=== PATIENT | female | born 1935 | race Caucasian/White ===

== ENCOUNTER → 2016-10-21 | Outpatient (CLI) | payer MEDICARE ==
[~2016-10-21] MED LIST: ADALATCC PO; ALEVE; ALEVE220 M1 PO; ALLOPURINOL300 MG PO; ALTACE2.5 MG PO; AMIODARONE HCL200 MG; CLONIDINE PO; DIAZEPAM PO; ELIQUIS5 MG PO; FEMARA2.5 MG PO; HCTZ PO; IBUPROFEN PO; INDERAL40 MG; INNOPRAN XL120 MG PO; LANOXIN PO; LASIX PO; LIPITOR40 MG PO; LISINOPRIL-HCTZ1 T19 PO; LORTAB 7.5-5001 TAB PO; MIRALAX17 GM PO; NIACOR; PROCARDIA XL PO; PROPRANOLOL PO; SIMVASTATIN40 MG PO; TOPROL XL PO; ZOCOR PO; ZYLOPRIM PO
[2016-10-21 10:53] LABS: ALBUMIN SERUM 3.9 g/dL (3.5-5.0); ALKALINE PHOSPHATASE 107 U/L (32-92); ALT (SGPT) 19 U/L (10-40); AST (SGOT) 26 U/L (10-42); BILIRUBIN,TOTAL 0.9 mg/dL (0.2-2.0); BLOOD UREA NITROGEN 21 mg/dL (9-23); BUN/CREATININE RATIO 19.09; CARBON DIOXIDE 23 mmol/L (22-31); CHLORIDE 104 mmol/L (100-111); CHOLESTEROL 187 mg/dL (0-200); CK TOTAL 141 IU/L (26-140); CREATININE SERUM 1.1 mg/dL (0.6-1.4); GLOM FILT RATE Estimated 50.9 mL/min (>60); GLUCOSE FASTING 171 mg/dL (70-110); HDL CHOLESTEROL 30 mg/dL (35-95); MAGNESIUM 1.7 mg/dL (1.6-3.0); POTASSIUM 3.6 mmol/L (3.5-5.1); PROTEIN TOTAL SERUM 7.2 g/dL (6.0-8.3); SODIUM 135 mmol/L (135-145)
[2016-10-21 10:54] LABS: TRIGLYCERIDES 527 mg/dL (10-160)
[2016-10-21 15:50] LABS: MB 3.7 ng/ml
[2016-10-21 15:51] LABS: %MB 2.6 % (0.0-4.0)
== END | disposition home or self-care (01) ==
LOC: SLAB 11:45
DX: E78.5 Hyperlipidemia, unspecified (principal)
CPT/HCPCS: 36415; 80053; 80061; 82550; 82553; 83735

== ENCOUNTER 2016-12-08 18:04 | Inpatient (IN) | payer MEDICARE, BC ==
--- NOTE | ~2016-12-08 | EKG ---
PATIENT: THOMAS DE LA CRUZ UNIT #: [id number] Ventricular Rate: 50 BPM Atrial Rate: 83 BPM QRS Duration: 88 ms Q-T Interval: 374 ms QTC Calculation(Bezet): 340 ms Calculated R [place]: 43 degrees Calculated T [place]: -116 degrees Diagnosis Line: Atrial fibrillation with slow ventricular response Diagnosis Line: ST and T wave abnormality, consider inferior Diagnosis Line: ischemia Diagnosis Line: Abnormal ECG Diagnosis Line: No previous ECGs available Diagnosis Line: Confirmed by MOIRA ARNOLD MD ([id number]) on 12/12/2016 Diagnosis Line: 3:51:10 PM INTERPRETING MD: CATALINA UREÑA
--- NOTE | ~2016-12-08 | EKG ---
PATIENT: THOMAS DE LA CRUZ UNIT #: [id number] Ventricular Rate: 56 BPM Atrial Rate: 52 BPM QRS Duration: 164 ms Q-T Interval: 448 ms QTC Calculation(Bezet): 432 ms Calculated R [place]: 84 degrees Calculated T [place]: -94 degrees Diagnosis Line: Sinus bradycardia with A-V dissociation and Wide Diagnosis Line: QRS rhythm with Fusion complexes Junctional rhythm Diagnosis Line: Left bundle branch block with repolarization Diagnosis Line: abnormality Diagnosis Line: Abnormal ECG Diagnosis Line: When compared with ECG of 08-DEC-2016 18:18, Diagnosis Line: (unconfirmed) Diagnosis Line: Wide QRS rhythm has replaced Atrial fibrillation Diagnosis Line: Confirmed by MOIRA ARNOLD MD ([id number]) on 12/12/2016 Diagnosis Line: 3:55:47 PM INTERPRETING MD: CATALINA UREÑA
--- NOTE | ~2016-12-08 | A ---
[facility] Nutrition Therapy DATE: 12/13/16 Patient: THOMAS DE LA CRUZ Physician: FILOMENA Address: [address] [place] [address] Room/Bed: [address], Zip: [place] [address] Admit Date: 12/08/16 Date of : 37 Height: 5 2 Weight: 202 92 NUTRITIONAL ASSESSMENT: REASON: ICU length of stay Admitting Dx: 81 y/o female had cardioversion, went home and had dizzy spell/fall and was admitted PMH: CHF, HTN, CKD, Afib, borderling dyslipidemia, ventral hernia repair, appy, layne Anthropometrics: Ht: 62", admission wt: 91 kg, current wt: 92 kg, BMI: 36 (Stage II obese) Labs: Glucose 114, BUN 33, GFR 47.4 Meds: Lipitor, Lasix, Dopamine I/O & Bowel function: LBM 12/12, WNL Skin Integrity: R IJ site, generalized-1+ edema noted Assessment: Chart reviewed, events noted. See admitting dx and PMH as stated above, hospital course reviewed. Patient received temporary pacemaker on 12/10 after she coded, to get permanent pacemaker at [facility] 12/14 or 12/15. She is on 2L nasal cannula and has been eating well throughout her hospital course. She has had no recent weight loss, is Stage II obese, on healthy heart diet. Not appropriate for diet education at this time. See recs below, will follow. Dx: Stage II obese r/t diet/lifestyle/activity level AEB BMI 36. Intervention: Continue current diet Monitoring, Evaluation and Goals: 1. Gradual weight loss towards a healthy BMI range. 2. Labs WNL. Monitor: Per protocol, criteria to determine if above goals met Recommendations: 1. Continue current diet to promote a gradual weight loss towards a healthy BMI range. 2. If patient becomes appropriate for diet education prior to discharge please consult RD. [facility] Nutrition Therapy DATE: 12/13/16 Patient: THOMAS DE LA CRUZ Physician: FILOMENA Address: [address] [place] [address] Room/Bed: [address], Zip: [place] [address] Admit Date: 12/08/16 Date of : 36 Height: 5 2 Weight: 202 92 Will follow hospital course Mild-moderate nutrition risk Respectfully, Linh Monk RD, LD Food [facility] Nutrition[facility] cc: client file
--- NOTE | ~2016-12-08 | HP ---
Unit #: [id number] #: [id number] Patient: THOMAS DE LA CRUZ [id number] [facility] [address] [facility]. [place], [place] [address] [id number] I MR#: [id number] NAME: THOMAS DE LA CRUZ. ROOM: [facility] Age: 81 Sex: F Admission Date: 12/08/2016 : 1935 Attending Physician: Shelbi Zhang M.D. Primary Care Physician: Rachid Dangelo M.D. HISTORY AND PHYSICAL CHIEF COMPLAINT Falling. HISTORY OF PRESENT ILLNESS Ms. De La Cruz is a pleasant 81-year-old seen in ICU-20 at [facility]. I cardioverted her yesterday from atrial fibrillation to sinus rhythm. She has a history of congestive heart failure, and we have treated her with appropriate medications, started her on a CPAP, and started her on amiodarone. She had been taking Inderal for tremors, prescribed q.i.d. but she was only taking it b.i.d. Metoprolol had been added for heart rate control with the atrial fibrillation and with the CHF. After cardioversion the heart rate was initially 25, for less than one minute and after atropine increased to 50. She had been discharged home with a heart rate of 60 and blood pressure 120 feeling well; however, she took her Lasix at home, after which she started to feel dizzy. She then presented to the emergency room, and ECG showed sinus beats with primarily junctional rhythm with rates of 5-59. She was started on dopamine and heart rates have been maintained between 60 and 70 during the night with blood pressures up to 170 during the night. PAST MEDICAL HISTORY 1. Chronic systolic congestive heart failure, with ejection fraction 25-30% yesterday with the transesophageal echo. 2. Paroxysmal atrial fibrillation. 3. Hypertension. 4. Borderline dyslipidemia. 5. No history of diabetes. 6. Nephrolithiasis. 7. Chronic kidney disease. 8. Appendectomy. 9. Cholecystectomy. 10. Thyroidectomy. 11. Tumors on foot and left arm. 12. Lumpectomy for breast cancer. 13. Ventral hernia repair. 14. Right foot surgery x3. SOCIAL HISTORY No meaningful tobacco abuse. She smoked a few cigarettes for a few years but stopped this years ago. 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 FAMILY HISTORY Mother and sister had heart disease. Sister may have had a myocardial infarction. Unit #: [id number] #: [id number] Patient: THOMAS DE LA CRUZ ALLERGIES None. HOME MEDICATIONS 1. Allopurinol. 2. Propranolol. 3. Eliquis. 4. Digoxin (discontinued). 5. Metoprolol. 6. Inderal. 7. Amiodarone. 8. Niacin. 9. Aleve. 10. Entresto. REVIEW OF SYSTEMS As per history of present illness. Otherwise, as stated below. GENERAL: No recent fever or chills. No recent weight change. ENDOCRINE: Negative for thyroid disease. HEENT: No auditory or visual disturbances. GASTROINTESTINAL: No melena, no hematochezia. RESPIRATORY: No wheezing or significant dyspnea. CARDIOVASCULAR: Vide supra. GENITOURINARY: No dysuria. No back pain suggestive of nephrolithiasis. NEUROLOGIC: She manifested some dizziness today when I stopped the dopamine and she sat up. PSYCHOLOGICAL: No depression. PHYSICAL EXAMINATION GENERAL: Pleasant, alert, no acute distress. VITAL SIGNS: Blood pressure and heart rate are as noted above. Height 5 feet 2 inches, weight 210 pounds, BMI 36. SKIN: Warm and dry. No xanthelasma. MUSCULOSKELETAL: No missing digits. Moves easily for evaluation. NEUROLOGICAL: Appropriate mood and affect. Alert and oriented x3. HEENT: Pupils equal, round and reactive. No oral cyanosis. No icterus. NECK: Carotids clear to auscultation with no carotid bruits. Normal carotid upstroke bilaterally. Thyroid is normal in size and texture without masses or tenderness. CHEST: Clear to auscultation with no rales or wheezes. Good effort. CARDIAC: Normal point of maximum impulse. Normal S1 and S2. No S3, S4 or rub. ABDOMEN: No hepatosplenomegaly, masses or tenderness. Normal bowel sounds. No abdominal bruits heard. EXTREMITIES: No clubbing, cyanosis or edema. Excellent posterior tibial and dorsalis pedis pulses. DIAGNOSTIC STUDIES CARDIOVASCULAR: ECG shows sinus rhythm, sinus beats with some junctional rhythm. Bundle branch block when junctional rhythm is present. Fasting glucose 141, creatinine 1.4, potassium 4.5, magnesium 1.8. TSH in 2015 was 2.06. White blood count 10.8, hemoglobin 11.0. IMPRESSION 1. Junctional rhythm and bradycardia associated with weakness and fall at home, after diuretics, and cardioversion, thus symptomatic bradycardia. Unit #: [id number] #: [id number] Patient: THOMAS DE LA CRUZ 2. Chronic systolic congestive heart failure, ejection fraction 25-30%. 3. Obstructive sleep apnea. She uses a CPAP only 4 hours per night. We will Dr. Rosa see her. 4. Tremors. She was taking Inderal for the tremors. She cannot take the beta blockers any longer. Will have neuro see her. 5. Paroxysmal atrial fibrillation, currently in sinus rhythm. 6. History of hypertension. Borderline dyslipidemia. No diabetes. Borderline family history of coronary disease. No tobacco abuse history. PLANS 1. Watch her in the ICU currently. Long discussion with Dr. Dorman, patient's granddaughter, and the nurse to try to make sure we are all on the same page. The dopamine will emphasize the junctional response and slow down the sinus recovery. Dr. Dorman therefore recommended no dopamine. No pacemaker currently, we need to let the beta blockers wear off. 2. There is a question of an ICD in the future. 3. Dr. Rosa to see regarding getting the patient to use her CPAP for longer time periods at night. 4. Neuro to see. 5. Check TSH to make sure this is not a factor in her current symptomatology. 80 minutes. Dictated by Luis Oconnell M.D. BARBARA/aram TD: 12/09/2016 10:16 JOB #: [id number] HISTORY AND PHYSICAL Page 1 of 1 X Luis Oconnell MD X HISTORY AND PHYSICAL
--- NOTE | ~2016-12-08 | CO ---
Unit #: [id number] #: [id number] Patient: THOMAS DE LA CRUZ [id number] [place], [place] [address] [id number] I MR#: [id number] NAME: THOMAS DE LA CRUZ. ROOM: [facility] Age: 81 Sex: F Admission Date: 12/08/2016 : 1935 Attending Physician: Shelbi Zhang M.D. Primary Care Physician: Rachid Dangelo M.D. CONSULTATION REPORT HISTORY OF PRESENT ILLNESS Ms. De La Cruz is an 81-year-old white female, who was admitted to the hospital with bradycardia. She was cardioverted yesterday for atrial fibrillation to sinus rhythm. Apparently, she was initially bradycardic after the event, but heart rate increased after atropine and she was discharged home. She took some metoprolol at home and placed on Lasix and her heart rate fell and she became dizzy. She was readmitted. We were asked to see for sleep apnea. She told Dr. Oconnell she was not always wearing a CPAP. She sees Dr. Rosa in our office. 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 She says some night, she wears it 7.5 to 8 hours of the night, may be 4 hours. She says she sometimes feel like she is smothering with it or she gets hot with her mask on. We do not have her compliance card to review. She was last seen in our office in the fall of 2015. PAST MEDICAL HISTORY Significant for chronic systolic congestive heart failure, ejection fraction 25% to 30%, paroxysmal atrial fibrillation, hypertension, hyperlipidemia, diabetes, nephrolithiasis, chronic kidney disease. PAST SURGICAL HISTORY Appendectomy, cholecystectomy, thyroidectomy, tumors removed from foot and arm, lumpectomy for breast cancer, ventral hernia repair, right foot surgery. ALLERGIES None. HOME MEDICATIONS Allopurinol, propranolol, Eliquis, digoxin, metoprolol, Inderal, amiodarone, niacin, Aleve, Entresto. FAMILY HISTORY Sister has heart disease. SOCIAL HISTORY No significant tobacco use. He used to work in a bank, lives alone. REVIEW OF SYSTEMS CONSTITUTIONAL: No fevers or chills. HEENT: No rhinorrhea or nasal congestion. ENDOCRINE: No thyroid disease. Does have diabetes. HEENT: No visual disturbances. GI: No nausea or vomiting. Unit #: [id number] #: [id number] Patient: THOMAS DE LA CRUZ : No hematuria or dysuria. ENDOCRINE: No polyuria or polydipsia. HEMATOLOGIC: Does have easy bruising and bleeding. SKIN: No rash. PSYCH: No depression. Does have some dizziness. PHYSICAL EXAMINATION GENERAL: White female, obese, no distress. VITAL SIGNS: Blood pressure is 117/56, pulse 58, respiratory rate 17, afebrile. HEENT: Normocephalic, atraumatic. Pupils are equal, round, and reactive. Sclerae nonicteric. Nasal passages patent. Posterior pharynx crowded. Dentures in place. Mallampati IV. NECK: Supple. Trachea midline. No cervical or supraclavicular lymphadenopathy. LUNGS: Clear to auscultation and percussion. CARDIAC: Regular rate and rhythm. Could not appreciate murmur, rub, or gallop. ABDOMEN: Nontender. Bowel sounds present. No hepatosplenomegaly. EXTREMITIES: Without clubbing, cyanosis, or edema. SKIN: Warm and dry. PSYCHIATRIC: Affect calm. IMPRESSION 1. Obstructive sleep apnea. 2. Bradycardia secondary to medication. 3. Paroxysmal atrial fibrillation. 4. Chronic systolic heart failure. 5. Morbid obesity. 6. Diabetes mellitus. 7. Hypertension. PLAN We will have the patient follow up in the office to review compliance chip. May consider mask change to afford better comfort at night. Dr. Rosa will follow up in the a.m. Dictated by... Earnest Pressley M.D. LETICIA/penelope TD: 12/10/2016 02:09 JOB #: [id number] CONSULTATION REPORT Page 1 of 1 X Earnest Pressley MD CONSULTATION REPORT
--- NOTE | ~2016-12-08 | EKG ---
PATIENT: THOMAS DE LA CRUZ UNIT #: [id number] Ventricular Rate: 62 BPM Atrial Rate: 62 BPM P-R Interval: 472 ms QRS Duration: 170 ms Q-T Interval: 498 ms QTC Calculation(Bezet): 505 ms Calculated R [place]: -128 degrees Calculated T [place]: 16 degrees Diagnosis Line: Electronic ventricular pacemaker Diagnosis Line: When compared with ECG of 10-DEC-2016 10:56, Diagnosis Line: (unconfirmed) Diagnosis Line: Electronic ventricular pacemaker has replaced Diagnosis Line: Junctional rhythm Diagnosis Line: Confirmed by ETHAN EVANS MD ([id number]) on 12/12/2016 Diagnosis Line: 9:16:25 PM INTERPRETING MD: CRISTINA UREÑA
--- NOTE | ~2016-12-08 | DS ---
Unit #: [id number] #: [id number] Patient: THOMAS DE LA CRUZ [id number] [address] [id number] I MR#: [id number] NAME: THOMAS DE LA CRUZ. ROOM: [facility] Age: 81 Sex: F Admission Date: 12/08/2016 : 1935 Discharge Date: Attending Physician: Shelbi Zhang M.D. Primary Care Physician: Rachid Dangelo M.D. DISCHARGE SUMMARY ADDENDUM The patient apparently received her last dose of Eliquis on December 12, 2016. Eliquis has been discontinued. The patient's AICD placement was changed from Tuesday to Tuesday, December 15, 2016. The patient is stable for discharge. The patient will be continued on: 1. Spironolactone 12.5 mg p.o. daily. 2. Mysoline 50 mg p.o. at night. 3. Dopamine drip. 4. Lipitor 40 mg at bedtime. 5. Altace 2.5 mg p.o. at night. 6. Lisinopril 40 mg p.o. daily. 7. Zyloprim 300 mg p.o. daily. Dictated by... Elva Shafer A.P.R.N. for Luis Oconnell M.D. AM/jeb TD: 12/14/2016 09:26 JOB #: [id number] DISCHARGE SUMMARY Page 1 of 1 X lEva Shafer APRN X DISCHARGE SUMMARY
--- NOTE | ~2016-12-08 | CR72 ---
[facility] A Service of [facility] & [facility] RADIOLOGY TEXT RESULTS PATIENT: THOMAS DE LA CRUZ LOCATION: [address] : [birth year] UNIT #: [id number] AGE: [address]: Shelbi Zhang MD SEX: F ORDER DR: [id number] [facility] [address] [place], [place] [address] [id number] I MR#: [id number] Acc #: [id number] NAME: THOMAS DE LA CRUZ. : 1935 SEX: F STUDY DATE/TIME: 12/08/2016 18:58 UNIT: CEDOF ROOM: [id number] STUDY DESCRIPTION: CR Chest Single View Portable Attending Physician: Shelbi Zhang M.D. Ordering Physician: Henry Michael D.O. Primary Care Physician: Rachid Dangelo M.D. MEDICAL IMAGING REPORT This report is preliminary unless electronic signature is present EXAM Portable chest. DATE OF EXAM 12/08/2016 INDICATIONS Weakness with shortness of air with activity today. Fall today. History of breast cancer. FINDINGS AP portable chest compared with 06/18/2015. Again seen is severe degenerative disease in both shoulders. The heart remains enlarged. There may be a hiatal hernia. The lungs are clear except for granulomatous calcification. No pneumothorax. IMPRESSION Stable cardiomegaly. No active disease. Hiatal hernia may be present. Dictated by... Jay Jay Klein Jr., M.D. THIS IS AN ELECTRONICALLY VERIFIED REPORT Jay Jay Klein Jr., M.D. at 12/08/2016 11:05 PM DANIELA/rachid TD: 12/08/2016 20:37 JOB #: [id number] MEDICAL IMAGING REPORT Page 1 of 1 COPY
--- NOTE | ~2016-12-08 | OR ---
Unit #: [id number] #: [id number] Patient: THOMAS DE LA CRUZ [id number] [facility]. [place], [place] [address] [id number] I MR#: [id number] NAME: THOMAS DE LA CRUZ ROOM: [id number] Date of Procedure: 12/08/2016 Admission Date: 12/08/2016 Surgeon: Luis Oconnell M.D. : 1935 Attending Physician: Shelbi Zhang M.D. Primary Care Physician: Rachid Dangelo M.D. PROCEDURE OPERATIVE NOTE PROCEDURE PERFORMED Cardioversion. INDICATION Atrial fibrillation, CHF. SUMMARY After the procedure was explained, questions answered, the consent signed a transesophageal echocardiogram was done. Versed 4 mg and fentanyl 75 mcg were given at the time. The SEAN showed no cardiac masses. Ejection fraction was approximately 25% to 30%, 1 to 2+ MR and TR and 1+ AI. After the SEAN, the patient was brought to the recovery room and appropriate anesthesia was given for DC synchronized biphasic electrical cardioversion. Patient was cardioverted at 75 J without success, then successfully at 100 J. The patient's returning rhythm was junctional rhythm, rate 25 at first, then atropine was given in successive doses up to 2 mg, with a resulting rate of 50 beats per minute. The blood pressure immediately after the procedure was approximately 95, with blood pressure of 84 after the final milligram of atropine was given. Patient was easily aroused, able to understand commands, lifting her head, and each arm and each leg appropriately to command. At the time of this dictation patient will be observed for another hour and a half in the recovery room, and allowed to wake up, after the sedation given previously. At the time of this dictation patient is in junctional rhythm, with junctional premature beats. Rate is still approximately 50. Blood pressure now 84/38, oxygen saturation during the entire procedure, including the very slow junctional rates, was 99%. Patient never developed any cyanosis, or any signs of distress. If the patient's heart rate does not become sinus, patient may be watched overnight in the ICU. Very cautious fluid has been given because of the heart failure, at the time of this dictation currently 700 mL. Dictated by... Unit #: [id number] #: [id number] Patient: THOMAS DE LA CRUZ M.D. PJR/christopher TD: 12/08/2016 21:45 JOB #: [id number] PROCEDURE OPERATIVE NOTE Page 1 of 1 X Luis Oconnell MD PROCEDURE OPERATIVE NOTE
--- NOTE | ~2016-12-08 | EKG ---
PATIENT: THOMAS DE LA CRUZ UNIT #: [id number] Ventricular Rate: 45 BPM Atrial Rate: 0 BPM QRS Duration: 92 ms Q-T Interval: 402 ms QTC Calculation(Bezet): 347 ms Calculated R [place]: 31 degrees Calculated T [place]: 61 degrees Diagnosis Line: Junctional rhythm Diagnosis Line: Nonspecific ST and T wave abnormality Diagnosis Line: Abnormal ECG Diagnosis Line: No previous ECGs available Diagnosis Line: Confirmed by MOIRA ARNOLD MD ([id number]) on 12/12/2016 Diagnosis Line: 4:03:21 PM INTERPRETING MD: CATALINA UREÑA
--- NOTE | ~2016-12-08 | CO ---
Unit #: [id number] #: [id number] Patient: THOMAS DE LA CRUZ [id number] [facility] [address] [place], [place] [address] [id number] I MR#: [id number] NAME: THOMAS DE LA CRUZ. ROOM: [facility] Age: 81 Sex: F Admission Date: 12/08/2016 : 1935 Attending Physician: Shelbi Zhang M.D. Primary Care Physician: Rachid Dangelo M.D. Consultation Date: 12/09/2016 CONSULTATION REPORT REFERRING PHYSICIAN Peterson Oconnell M.D. REASON FOR CONSULTATION Tremors. PATIENT IDENTIFICATION 81-year-old right-handed white female who was evaluated from ICU 20 at [facility]. SOURCE OF INFORMATION The patient, and evaluation by the admitting team and the patient's family. PROBLEM LIST 1. The patient had a history of tremors, was on beta-blockers for quite some time and it has to be stopped and has seen a neurologist in the past but with no significant help. 2. Chronic systolic congestive heart failure with low ejection fraction. 3. Paroxysmal atrial fibrillation. 4. Hypertension. 5. Borderline dyslipidemia. 6. No history of diabetes. 7. Nephrolithiasis. 8. Chronic kidney disease. 9. Appendectomy. 10. Cholecystectomy. 11. Thyroidectomy. 12. Tumor on the foot and left arm. 13. Lumpectomy for breast cancer. 14. Ventral hernia repair. 15. Right foot surgery x3. HISTORY OF PRESENT ILLNESS This is a very pleasant 81-year-old, right-handed, white female who was actually admitted for other reasons but the family wanted an opinion on tremors. 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 Her son has them and her older siblings had them. She gets better when she used to drink and she will be fine until the morning, but does not drink anymore and she was on Inderal but not really helping. Now the Inderal has to be stopped, so they wanted another opinion. She was awake and alert and oriented. Unit #: [id number] #: [id number] Patient: THOMAS DE LA CRUZ No falls or injuries. Nothing else focal. No seizures. No migraines. No stroke-like symptoms. PAST MEDICAL HISTORY As discussed above. PAST SURGICAL HISTORY As discussed above. FAMILY HISTORY Coronary artery disease and benign essential tremor. ALLERGIES None. HOME MEDICATIONS 1. Allopurinol. 2. Propranolol. 3. Eliquis. 4. Digoxin. 5. Metoprolol. 6. Inderal. 7. Amiodarone. 8. Niacin. 9. Aleve. 10. Entresto. SOCIAL HISTORY No significant tobacco use. She smoked a few cigarettes for a few years but stopped years ago. She used to work in a bank. Currently lives alone. No tobacco, alcohol, or drug use anymore. REVIEW OF SYSTEMS Mostly the tremors and cardiac issues. No weight issues, fever, chills, rigors, or sweats. HEENT: No headaches. No double vision, earache, runny nose or sore throat. CARDIOVASCULAR: No chest pain, clubbing, cyanosis, orthopnea, or palpitations. PULMONARY: No shortness of air, cough, or expectoration. ABDOMEN: No nausea, vomiting, diarrhea, or constipation. : No genitourinary symptoms. EXTREMITIES: Problems as discussed. BACK: No back problems. PSYCHIATRIC: No psychiatric issues. NEUROLOGICAL: Neurological issues as discussed. HEMATOLOGIC/DERMATOLOGIC/ENDOCRINE: No problems known to me. PHYSICAL EXAMINATION VITAL SIGNS: Temperature 98.1, pulse 44, respiratory 17, blood pressure 113/43, O2 sats are 93% to 98%. Weight 210 pounds. BMI was 36. Unit #: [id number] #: [id number] Patient: THOMAS DE LA CRUZ NEUROLOGICAL EXAMINATION: The patient is awake. She is alert. She is essentially oriented. She can name. She can follow commands. No right/left confusion. No finger agnosia. CRANIAL NERVE EXAMINATION: Demonstrates full mcdonald of vision to confrontation. Eye movements are conjugate. I did not see any ptosis. I did not see any nystagmus. Extraocular movements are intact. Sensation on the face and scalp are normal. Central muscles of facial expression are normal. Hearing seemed to be intact bilaterally. Tongue was midline. Uvula was midline. Palate elevation was normal. No voice quiver. MOTOR EXAMINATION: She has very fine tremor. Moderate amplitude, about 5-7 hertz. Strength was 5-/5. SENSORY EXAMINATION: Intact for soft touch and pain sensation. No extinction was seen. Romberg was not evaluated. GAIT EXAMINATION: Deferred. COORDINATION: Tremors but no real pass pointing. REFLEXES: Toes are equivocal. DIAGNOSTIC STUDIES LABORATORY STUDIES: BUN was 33, creatinine 1.5, range of glucose was 141 to 190. TSH was 4.2. White count is 10.38, mild anemia. IMAGING STUDIES: No brain imaging studies available to me. IMPRESSION 1. Benign essential familial tremor. She cannot take Inderal or beta-blockers anymore, so I think the best appropriate would be to go to primidone and I'm going to start with 25 mg and go higher if needed and tolerated. I explained to the daughter. She definitely needs followup because all of these medications need to be titrates up or tapered down, in case it is needed or there are side effects and that is why it is not an optimum idea to see patient, especially in the ICU setting, but I understand with the beta-blockers the situation. These do not look like seizures. 2. In some cases of small doses of benzodiazepines may be used to help with the amplitude of the tremors and will see how things go, contrary to pressing issue of concern. Dictated by... Kennedi Mcneil/jamie TD: 12/10/2016 11:31 JOB #: [id number] Unit #: [id number] #: [id number] Patient: THOMAS DE LA CRUZ CONSULTATION REPORT Page 1 of 1 X Jesus Jackman MD CONSULTATION REPORT
--- NOTE | ~2016-12-08 | OR ---
Unit #: [id number] #: [id number] Patient: THOMAS DE LA CRUZ [id number] [address] [address] [id number] I MR#: [id number] NAME: THOMAS DE LA CRUZ. ROOM: [facility] Date of Procedure: 12/10/2016 Admission Date: 12/08/2016 Surgeon: Aries Dumont M.D. : 1935 Attending Physician: Shelbi Zhang M.D. Primary Care Physician: Rachid Dangelo M.D. OPERATIVE REPORT PROCEDURE PERFORMED Temporary pacemaker insertion. INDICATION FOR PROCEDURE Severe bradycardia. DESCRIPTION OF PROCEDURE The patient was brought to the cardiac catheterization lab, right cervical neck was prepared and draped in a sterile manner. 10 mL of subcutaneous Xylocaine was infiltrated. Using a Cook needle, right internal jugular vein was punctured and a J-tip guidewire was advanced. A 6-Slovenian Hemaquet sheath was placed in the internal jugular vein under fluoroscopic control. A 5-Slovenian straight tipped unipolar pacing catheter was then advanced under fluoroscopic control into the right ventricular apex. Excellent pacing thresholds were obtained, pacemaker and the sheaths were sutured in place. No complications were encountered. IMPRESSION Successful placement of a temporary transvenous pacemaker via the right internal jugular vein with following parameters; heart rate 60, mode full demand, output 5 milliamps. The patient was transferred to the ICU in satisfactory condition and normal vital signs. Dictated by... Kennedi Villanueva/penelope TD: 12/11/2016 05:17 JOB #: [id number] Unit #: [id number] #: [id number] Patient: THOMAS DE LA CRUZ OPERATIVE REPORT Page 1 of 1 X Aries Dumont MD X PROCEDURE OPERATIVE NOTE
--- NOTE | ~2016-12-08 | DS ---
Unit #: [id number] #: [id number] Patient: THOMAS DE LA CRUZ [id number] [facility]. [place], [place] [address] [id number] I MR#: [id number] NAME: THOMAS DE LA CRUZ. ROOM: [facility] Age: 81 Sex: F Admission Date: 12/08/2016 : 1935 Discharge Date: Attending Physician: Shelbi Zhang M.D. Primary Care Physician: Rachid Dangelo M.D. DISCHARGE SUMMARY DATE OF ANTICIPATED DISCHARGE December 13, 2016 ADMITTING DIAGNOSIS Dizziness. DISCHARGE DIAGNOSES 1. Dizziness related to complete heart block. 2. Atrial fibrillation, converted, with complete heart block despite beta fernando wearing off. 3. Congestive heart failure with ejection fraction of 25% to 30%. 4. Mild to moderate mitral and tricuspid regurgitation. 5. Obstructive sleep apnea. HOSPITAL COURSE The patient was admitted the evening after she was cardioverted. After her cardioversion, she developed significant bradycardia which had recovered by the time she was discharged with blood pressures 110 to 120 and heart rate 60. However, when she arrived home, she took a Lasix, became dizzy after the Lasix started to take affect, and was brought back to the emergency room. In the emergency room, she was found to have heart rates in the 40s with complete heart block present. Heart rates would go down into the 30s when she would sleep. We tried to wean off dopamine, which I started to sustain heart rate, with several discussions with Dr. Dorman. When we weaned off the dopamine, she became asystolic, and a temporary pacemaker was placed. At the time of this dictation, the patient is deciding between AICD and permanent pacemaker. DISCHARGE MEDICATIONS 1. Amiodarone 200 mg daily. 2. Eliquis 5 mg b.i.d. 3. Mysoline 50 mg, 25 mg at bedtime, thus 1/2 tab. 4. Digoxin discontinued. 5. Metoprolol discontinued. 6. Inderal discontinued (for tremors). 7. Lasix 40 mg daily. 8. Atorvastatin 40 mg daily. 9. Altace 2.5 mg at bedtime. 10. Allopurinol 300 mg daily. 11. Niacin. DISPOSITION Unit #: [id number] #: [id number] Patient: THOMAS DE LA CURZ Transfer to [facility] for permanent pacemaker or ICD placement. Patient is still deciding about the options. Dictated by... Kennedi Lozada/kole TD: 12/12/2016 21:02 JOB #: [id number] DISCHARGE SUMMARY Page 1 of 1 X Lius Oconnell MD X DISCHARGE SUMMARY
[2016-12-08 19:40] LABS: INR 1.2; PARTIAL THROMBOPLASTIN TIME 28.7 SECONDS (23.5-31.3); PROTHROMBIN TIME (PATIENT) 12.4 SECONDS (9.6-11.5)
[2016-12-08 19:44] LABS: BASOPHIL# 0.1 X10e3 (0-0.3); BASOPHIL% 0.6 % (0-2.5); EOSINOPHIL# 0.2 X10e3 (0-0.7); EOSINOPHIL% 2.1 % (0.0-7.0); HEMATOCRIT 33.4 % (35.0-45.0); LYMPHOCYTE# 1.2 X10e3 (1.0-3.5); LYMPHOCYTE% 11.4 % (17.0-45.0); MEAN CELL VOLUME 99.6 FL (83-96); MEAN CORPUSCULAR HEMOGLOBIN 32.7 PG (28-34); MEAN CORPUSCULAR HGB CONC 32.8 g/dL (30-36); MEAN PLATELET VOLUME 7.5 FL (6.5-11.5); MONOCYTE# 0.8 X10e3 (0-1.0); MONOCYTE% 7.7 % (3.0-12.0); NEUTROPHIL# 8.5 X10e3 (1.5-7.1); NEUTROPHIL% 78.2 % (40-75); PLATELET COUNT 164 X10e3 (140-420); RED BLOOD COUNT 3.35 X10e (3.90-5.30); RED CELL DISTRIBUTION WIDTH 16.1 % (11.0-15.5); WHITE BLOOD COUNT 10.8 X10e3 (4.0-10.5)
[2016-12-08 19:46] LABS: DIFF IND NO
[2016-12-08 19:48] LABS: BILIRUBIN, DIRECT 0.1 mg/dL (0.0-0.2); BILIRUBIN,INDIRECT 1.2 mg/dL (0.0-0.9); BILIRUBIN,TOTAL 1.3 mg/dL (0.2-2.0); BUN/CREATININE RATIO 22.85; CALCIUM SERUM 9.4 mg/dL (8.4-10.2); CREATININE SERUM 1.4 mg/dL (0.6-1.4); GLOM FILT RATE Estimated 35.4 mL/min (>60); MAGNESIUM 1.8 mg/dL (1.6-3.0); POTASSIUM 4.5 mmol/L (3.5-5.1); PROTEIN TOTAL SERUM 7.4 g/dL (6.0-8.3)
[2016-12-08 21:03] LABS: POC - CKMB 2.6 ng/mL (0.0-7.9); POC - TROPONIN <0.05 ng/mL (<=0.05)
[2016-12-09 11:14] LABS: CALCIUM SERUM 9.3 mg/dL (8.4-10.2); CREATININE SERUM 1.5 mg/dL (0.6-1.4); GLOM FILT RATE Estimated 32.6 mL/min (>60); MAGNESIUM 1.9 mg/dL (1.6-3.0); POTASSIUM 4.8 mmol/L (3.5-5.1)
[2016-12-10 06:54] LABS: BUN/CREATININE RATIO 26.15; CALCIUM SERUM 9.2 mg/dL (8.4-10.2); CREATININE SERUM 1.3 mg/dL (0.6-1.4); GLOM FILT RATE Estimated 38.7 mL/min (>60); POTASSIUM 4.1 mmol/L (3.5-5.1)
[2016-12-11 06:57] LABS: CALCIUM SERUM 8.8 mg/dL (8.4-10.2); CREATININE SERUM 1.3 mg/dL (0.6-1.4); GLOM FILT RATE Estimated 38.7 mL/min (>60)
[2016-12-12 05:38] LABS: BUN/CREATININE RATIO 33.33; CALCIUM SERUM 8.8 mg/dL (8.4-10.2); CREATININE SERUM 1.2 mg/dL (0.6-1.4); GLOM FILT RATE Estimated 42.7 mL/min (>60); MAGNESIUM 1.9 mg/dL (1.6-3.0); POTASSIUM 4.1 mmol/L (3.5-5.1)
[2016-12-13 08:25] LABS: BASOPHIL% 0.5 % (0-2.5); EOSINOPHIL# 0.2 X10e3 (0-0.7); EOSINOPHIL% 2.9 % (0.0-7.0); HEMATOCRIT 29.3 % (35.0-45.0); HEMOGLOBIN 9.7 gm/dL (12.0-16.0); LYMPHOCYTE# 1.3 X10e3 (1.0-3.5); LYMPHOCYTE% 16.1 % (17.0-45.0); MEAN CELL VOLUME 99.6 FL (83-96); MEAN CORPUSCULAR HEMOGLOBIN 32.9 PG (28-34); MEAN CORPUSCULAR HGB CONC 33.1 g/dL (30-36); MEAN PLATELET VOLUME 6.6 FL (6.5-11.5); MONOCYTE# 0.7 X10e3 (0-1.0); MONOCYTE% 8.7 % (3.0-12.0); NEUTROPHIL# 5.8 X10e3 (1.5-7.1); NEUTROPHIL% 71.8 % (40-75); PLATELET COUNT 139 X10e3 (140-420); RED BLOOD COUNT 2.95 X10e (3.90-5.30); RED CELL DISTRIBUTION WIDTH 15.6 % (11.0-15.5); WHITE BLOOD COUNT 8.1 X10e3 (4.0-10.5)
[2016-12-13 08:27] LABS: DIFF IND NO
[2016-12-13 08:40] LABS: INR 1.1
[2016-12-13 08:53] LABS: ALBUMIN SERUM 3.1 g/dL (3.5-5.0); BILIRUBIN,TOTAL 0.8 mg/dL (0.2-2.0); CALCIUM SERUM 8.8 mg/dL (8.4-10.2); CREATININE SERUM 1.1 mg/dL (0.6-1.4); GLOM FILT RATE Estimated 47.4 mL/min (>60); MAGNESIUM 2.1 mg/dL (1.6-3.0); PHOSPHOROUS 3.9 mg/dL (2.5-4.6); POTASSIUM 4.1 mmol/L (3.5-5.1); PROTEIN TOTAL SERUM 6.3 g/dL (6.0-8.3)
[2016-12-14 06:43] LABS: BASOPHIL# 0.1 X10e3 (0-0.3); BASOPHIL% 0.8 % (0-2.5); EOSINOPHIL# 0.2 X10e3 (0-0.7); EOSINOPHIL% 2.3 % (0.0-7.0); HEMATOCRIT 30.2 % (35.0-45.0); LYMPHOCYTE# 1.7 X10e3 (1.0-3.5); LYMPHOCYTE% 18.6 % (17.0-45.0); MEAN CELL VOLUME 98.6 FL (83-96); MEAN CORPUSCULAR HEMOGLOBIN 32.5 PG (28-34); MEAN PLATELET VOLUME 8.3 FL (6.5-11.5); MONOCYTE# 0.9 X10e3 (0-1.0); MONOCYTE% 9.6 % (3.0-12.0); NEUTROPHIL# 6.4 X10e3 (1.5-7.1); NEUTROPHIL% 68.7 % (40-75); PLATELET COUNT 154 X10e3 (140-420); RED BLOOD COUNT 3.06 X10e (3.90-5.30); RED CELL DISTRIBUTION WIDTH 15.7 % (11.0-15.5); WHITE BLOOD COUNT 9.4 X10e3 (4.0-10.5)
[2016-12-14 06:44] LABS: DIFF IND NO
[2016-12-14 08:32] LABS: BUN/CREATININE RATIO 28.18; CALCIUM SERUM 9.1 mg/dL (8.4-10.2); CREATININE SERUM 1.1 mg/dL (0.6-1.4); GLOM FILT RATE Estimated 47.4 mL/min (>60); POTASSIUM 4.3 mmol/L (3.5-5.1)
== END 2016-12-15 09:18 | disposition short-term general hospital (02) | DRG 309 ==
LOC: CED 18:04 → CEDOF 19:05 → CICCU3 19:31 → CED 19:31 → CEDOF 19:31 → CICCU3 22:18
PROVIDERS: Emergency Medicine; Internal Medicine Cardiovascular Disease; Nurse Practitioner
PROC: 5A2204Z Restoration of Cardiac Rhythm, Single (ICD-10-PCS; principal; 2016-12-08)
PROC: 5A1223Z Performance of Cardiac Pacing, Continuous (ICD-10-PCS; 2016-12-10)
DX: I44.2 Atrioventricular block, complete (principal); I50.22 Chronic systolic (congestive) heart failure; I13.0 Hypertensive heart and chronic kidney disease with heart failure and stage 1 through stage 4 chronic kidney disease, or unspecified chronic kidney disease; I48.0 Paroxysmal atrial fibrillation; I08.1 Rheumatic disorders of both mitral and tricuspid valves; G47.33 Obstructive sleep apnea (adult) (pediatric); E78.5 Hyperlipidemia, unspecified; Z90.49 Acquired absence of other specified parts of digestive tract; Z87.891 Personal history of nicotine dependence; Z82.49 Family history of ischemic heart disease and other diseases of the circulatory system; Z79.01 Long term (current) use of anticoagulants; R25.1 Tremor, unspecified; Z87.442 Personal history of urinary calculi; N18.9 Chronic kidney disease, unspecified; Z85.3 Personal history of malignant neoplasm of breast; R00.1 Bradycardia, unspecified; R94.31 Abnormal electrocardiogram [ECG] [EKG]; E66.01 Morbid (severe) obesity due to excess calories; Z68.36 Body mass index [BMI] 36.0-36.9, adult
CPT/HCPCS: 71010; 80048; 80053; 80076; 80162; 82553; 83735; 84100; 84443; 84484; 85025; 85610; 85730; 93005; 93312; 94760; 99291; C1769; C1887; J0461; J1265; J1644; J2250; J3010